=== PATIENT | male | born 1975 | race African-American/Black ===

== ENCOUNTER 2022-07-29 19:04 | Emergency (ER) | payer OTHER, BC, MEDICAID, SELFPAY ==
[2022-07-29 19:07] VITALS: BP 149/95; PULSE 73; RESP 18; TEMP 36.6; O2SAT 98; BMI 26.9
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
[2022-07-29 20:56] VITALS: BP 145/90; PULSE 70; RESP 18; TEMP 36.6; O2SAT 99
== END 2022-07-29 21:00 | disposition home or self-care (01) ==
PROVIDERS: Emergency Provider Emergency Medicine
DX: S70.02XA Contusion of left hip, initial encounter (principal); S39.012A Strain of muscle, fascia and tendon of lower back, initial encounter; V03.10XA Pedestrian on foot injured in collision with car, pick-up truck or van in traffic accident, initial encounter
CPT/HCPCS: 72128; 72131; 72170; 72192; 73502; 73552; 73560; 99285

== ENCOUNTER 2022-11-02 11:12 | Emergency (ER) | payer BC, MEDICAID, SELFPAY ==
[2022-11-02 12:21] VITALS: BP 142/80; PULSE 73; RESP 18; TEMP 37.7; O2SAT 98; BMI 27.3
--- NOTE | 2022-11-02 12:30 | EXP.UTC ---
Discharge Plan Disposition Patient Disposition: Home, Self-Care Condition: Good Prescriptions Prescriptions: New benzonatate 100 mg capsule 100 mg PO TID PRN (Reason: cough) Qty: 30 0RF No Action amlodipine 10 mg Tablet 10 mg PO DAILY lisinopril 10 mg Tablet 10 mg PO DAILY pregabalin 150 mg capsule 150 mg PO DAILY methocarbamol 750 mg tablet 750 mg PO Q8H PRN (Reason: pain) Qty: 20 0RF naproxen 500 mg tablet 500 mg PO Q8H PRN (Reason: pain) Qty: 20 0RF Referrals Follow up/Referrals: Provider,Referral, MD [Primary Care Provider] - See instructions Activity Restrictions/Add. Instructions Additional Instructions/Restrictions: *Monitor Temp, Over the counter Motrin or Tylenol as directed/as needed Tylenol every 4 hours and Motrin every 6 hours (as long as your family doctor has told you that you can take it) for fever or pain. and straight to ER if unable to lower temp less than 101.0 after medication given *Warm salt water gargles may help to soothe the throat *Throat Lozenges? *Warm fluids like tea with honey may help to soothe the throat? *Sleep elevated *Humidifier/Vaporizer Tessalone perrles may help with your Cough Your throat swab was sent for culture. Those results are typically sent to your primary care. Be sure to follow up in 2-3 days with your family doctor/primary care physician if no improvement so they can review those result and treat if necessary. If you don?t have a primary care doctor, I recommend you get one but in the mean time, you will have to return to a walk in clinic Follow up IMMEDIATELY for new or worsening symptoms or no Noticeable improvement over the next 48-72 hours. 911 for difficulty breathing or swallowing You were tested for today for COVID19 your test result should be back in the next 24-48 hours, you may check your results on the [facility] [employer] [facility] Clinical Impressions Clinical Impression: Viral syndrome Stand Alone Forms Stand Alone Forms: Work/School Release Instructions Patient Instructions: DI for Viral Syndrome, DI for Fever (Symptom) -- Adult Discharge ED Provider: Pattie Pugh [facility] HPI General Stated complaint: Covid test, Cough, bodyaches, fatigue Mode of Arrival: Ambulatory Source of Information: Patient Limitations: No Limitations Time Seen by Provider: 11/02/22 12:30 Description of Symptoms (Recalled from Triage Doc. by RN): PATIENT C/O FEVER, CHILLS, BODY ACHES AND PRODUCTIVE COUGH SINCE LAST NIGHT HEENT Symptoms (Recalled from RN notes): Yes Resp Symptoms (Recalled from RN notes): Yes Skin Symptoms (Recalled from RN notes): No MS Symptoms (Recalled from RN notes): No Functional Status (Recalled from RN notes): WNL History of Present Illness Provider Complaint: Patient states that he started feeling bad yesterday and started with a little cough and throughout the day started with fever, chills, body aches, sore throat and over all not feeling well States that today he was still feeling bad so he came in Related Data Home Medications Medication Instructions Recorded Confirmed amlodipine 10 mg tablet 10 mg PO DAILY htn 07/29/22 07/29/22 lisinopril 10 mg tablet 10 mg PO DAILY htn 07/29/22 07/29/22 pregabalin 150 mg capsule 150 mg PO DAILY Pain 07/29/22 07/29/22 Previous Rx's Medication Instructions Recorded methocarbamol 750 mg tablet 750 mg PO Q8H PRN pain #20 tabs 07/29/22 naproxen 500 mg tablet 500 mg PO Q8H PRN pain #20 tabs 07/29/22 benzonatate 100 mg capsule 100 mg PO TID PRN cough #30 caps 11/02/22 Allergies Allergy/AdvReac Type Severity Reaction Status Date / Time No Known Allergies Allergy Verified 07/29/22 20:01 Worker's Comp Is this a Worker's Comp case?: No [facility] Disclaimer: The information contained in this section may have been updated after the patient was seen, as this information can be updated by other users. Social History (Updated 07/29/22 @ 2
[2022-11-02 12:50] LABS: UTC Strep Screen (Rapid) Negative (Negative)
[2022-11-02 13:00] VITALS: BP 142/80; PULSE 73; RESP 18; TEMP 37.7; O2SAT 98
== END 2022-11-02 13:02 | disposition home or self-care (01) ==
PROVIDERS: Emergency Provider Nurse Practitioner
DX: R05.1 Acute cough (principal); B34.9 Viral infection, unspecified; R53.83 Other fatigue; Z20.822 Contact with and (suspected) exposure to COVID-19
CPT/HCPCS: 87880; 99212; 99214; C9803; G0463; U0003; U0005

== ENCOUNTER 2024-02-17 09:07 | Outpatient (CLI) | payer BC, SELFPAY ==
--- NOTE | 2024-02-17 | MR_ITS ---
FINAL REPORT TECHNIQUE: Multiplanar MR without contrast CLINICAL HISTORY: DISC DEGENERATION COMPARISON: None FINDINGS: The vertebral heights are normal. Marrow signal pattern is unremarkable. Alignment is normal. Thoracic spinal cord shows a normal MR appearance. Multilevel mild annular bulges are present in the lower thoracic spine, from the T7-8 through the T9-10 levels. There is minimal disc disease present in the upper thoracic spine. There is no canal stenosis present. IMPRESSION: Multilevel mild annular bulges are present in the lower thoracic spine from the T7-8 through T9-10 levels. Reviewed, Interpreted and Dictated by Stephanie Valencia MD Transcribed by Angelita Denson Authenticated and [facility]
== END 2024-02-17 23:59 | disposition home or self-care (01) ==
LOC: RAD 09:08
PROVIDERS: PCP Pain Medicine Interventional Pain Medicine; Visit Provider Pain Medicine Interventional Pain Medicine
DX: M51.34 Other intervertebral disc degeneration, thoracic region (principal)
CPT/HCPCS: 72146

== ENCOUNTER 2024-02-21 11:27 | Emergency (ER) | payer BC, SELFPAY ==
[2024-02-21 11:35] VITALS: BP 128/78; PULSE 60; RESP 18; TEMP 36.5; O2SAT 100; BMI 29.1
[2024-02-21 12:02] LABS: Apearance,Urine Cloudy (Clear); Bilirubin,Urine Negative (Negative); Blood, Urine Negative (Negative); Color,Urine Yellow (Yellow); Glucose,Urine (UA) Negative (Negative); Ketones,Urine Negative (Negative); PH,Urine 5.5 (5.0-8.5); Protein,Urine 1+ (Negative); Specific Gravity, Urine >= 1.030 (1.005-1.030); UTC Leukocyte Esterase,Urine Negative (Negative); UTC Nitrate,Urine Negative (Negative); Urobilinogen,Urine 0.2 EU/dl (0.2)
--- NOTE | 2024-02-21 12:11 | EXP.UTC ---
Discharge Plan Disposition Patient Disposition: Home, Self-Care Condition: Good Prescriptions Prescriptions: No Action amlodipine 10 mg Tablet 10 mg PO DAILY lisinopril 10 mg Tablet 10 mg PO DAILY pregabalin 150 mg capsule 150 mg PO DAILY oxycodone-acetaminophen [Percocet] 7.5-325 mg Tablet 1 tab PO Q4H PRN (Reason: Pain) Referrals Follow up/Referrals: Provider,Referral, MD [Primary Care Provider] - See instructions Activity Restrictions/Add. Instructions Additional Instructions/Restrictions: Your test results should be back in the next 3-5 days make sure to check your results and follow up immediately Make sure to drink plenty of fluids Return if needed Straight to ER if any life threatening symptoms Clinical Impressions Clinical Impression: Penile discharge Instructions Patient Instructions: How to Detect and Treat STDs, Facts About Sexually Transmitted Infections Print Language Print Language: [place] Discharge ED Provider: Pattie Pugh [facility] [place] General Stated complaint: discharge and odor from private area? Mode of Arrival: Ambulatory Source of Information: Patient Limitations: No Limitations Time Seen by Provider: 02/21/24 12:11 Description of Symptoms (Recalled from Triage Doc. by RN): PATIENT C/O POSSIBLE BACTERIAL INFECTION TO GENITAL AREA HEENT Symptoms (Recalled from RN notes): No Resp Symptoms (Recalled from RN notes): No Skin Symptoms (Recalled from RN notes): No MS Symptoms (Recalled from RN notes): No Functional Status (Recalled from RN notes): WNL History of Present Illness Provider Complaint: Patient state that he was seen and treated at another [facility] for bacterial infection a month or so ago States he was given medication but still has been having discharge from penis on and off worried that the medication did not clear the infection so he wanted to get tested again Related Data Home Medications ?Medication ?Instructions ?Recorded ?Confirmed amlodipine 10 mg tablet 10 mg PO DAILY htn 07/29/22 02/21/24 lisinopril 10 mg tablet 10 mg PO DAILY htn 07/29/22 02/21/24 pregabalin 150 mg capsule 150 mg PO DAILY Pain 07/29/22 02/21/24 oxycodone-acetaminophen 7.5 mg-325 1 tab PO Q4H PRN Pain 02/21/24 02/21/24 mg tablet (Percocet) Allergies Allergy/AdvReac Type Severity Reaction Status Date / Time No Known Allergies Allergy Verified 07/29/22 20:01 Worker's Comp Is this a Worker's Comp case?: No [facility] Disclaimer: The information contained in this section may have been updated after the patient was seen, as this information can be updated by other users. Medical History (Updated 02/21/24 @ 12:22 by Pattie Pugh APRN) Hypertension Social History (Updated 07/29/22 @ 21:01 by Padma Bowden DO) Smoking Status: Never smoker alcohol intake: never current occupational status: employed Travel in the last 8 weeks: None ROS Obtained: Yes All systems reviewed & no additional complaints except as documented and Yes Systems reviewed as appropriate & no additional complaints except as documented Constitutional Constitutional: Reports system reviewed and no additional complaints, except as documented and Reports as per HPI ENT Ears, Nose, Mouth, and Throat: Reports system reviewed and no additional complaints, except as documented and Reports as per HPI Cardiovascular Cardiovascular: Reports system reviewed and no additional complaints, except as documented and Reports as per HPI Respiratory Respiratory: Reports system reviewed and no additional complaints, except as documented and Reports as per HPI Gastrointestinal Gastrointestingal: Reports system reviewed and no additional complaints, except as documented and as per HPI Musculoskeletal Musculoskeletal: Reports system reviewed and no additional complaints, except as documented and Reports as per HPI Physical Exam General General appearance: alert and in no apparent distress ENT ENT exam: Present mucous membranes moist Respiratory Respiratory exam: Present normal lung sounds bilaterally; Absent respiratory distress or wheezes Cardiovascular Cardiovascular exam: Present regular rate, normal rhythm and normal heart sounds Abdominal Exam Abdominal exam: Present soft and normal bowel sounds; Absent distention or tenderness Neurological Exam Neurological exam: Present alert, oriented X3 and normal gait Medical Decision Making Mundo Inquiry Pt receiving controlled substance: No Mundo was queried for this patient: No Vital Signs: 02/21/24 11:35 Temperature 97.7 F Temperature Source Oral Pulse Rate [Left Brachial] 60 Respiratory Rate 18 Blood Pressure [Left Arm] 128/78 Blood Pressure Mean [Left Arm] 94 Blood Pressure Source [Left Arm] Automatic Cuff Blood Pressure Position [Left Arm] Sitting 02 Sat by Pulse Oximetry 100 Oxygen Delivery Method Room Air Lab Data Lab Results 02/21/24 12:00: Urine Color Yellow, Urine Appearance Cloudy, Urine pH 5.5, Ur Specific Mize >= 1.030, Urine Protein 1+, Urine Glucose (UA) Negative, Urine Ketones Negative, Urine Blood Negative, Urine Nitrate Negative, Urine Bilirubin Negative, Urine Urobilinogen 0.2, Ur Leukocyte Esterase Negative Orders (Tests/Meds): ORDERS Category Date Time Status Mycoplasma genitalium, ROSA, Ur Stat Lab 02/21/24 11:57 Ordered Medical Decision Narrative: Patient states that he underwent testing at another [facility] and was dx with a bacterial infection patient was positive for Mycoplasma Genitalium and was treated but has continued to have discharge with odor on and off and significant other was treated also but concerned that they may still have it so they came in to get checked
[2024-02-21 12:16] VITALS: BP 128/78; PULSE 60; RESP 18; TEMP 36.5; O2SAT 100
[2024-02-23 06:13] LABS: Neisseria gonorrhoeae, NAA Negative (Negative)
== END 2024-02-21 12:32 | disposition home or self-care (01) ==
PROVIDERS: Emergency Provider Nurse Practitioner
DX: R36.9 Urethral discharge, unspecified (principal)
CPT/HCPCS: 81003; 87491; 87591; 99212; 99213; G0463

== ENCOUNTER 2024-03-04 19:00 | Emergency (ER) | payer BC, SELFPAY ==
[2024-03-04 19:20] VITALS: BP 126/84; PULSE 64; RESP 20; TEMP 36.3; O2SAT 100; BMI 28.3
[2024-03-04 20:05] VITALS: BP 126/84; PULSE 64; RESP 20; TEMP 36.3; O2SAT 100
--- NOTE | 2024-03-04 20:09 | EXP.UTC ---
Discharge Plan Disposition Patient Disposition: Home, Self-Care Condition: Good Prescriptions Prescriptions: No Action amlodipine 10 mg Tablet 10 mg PO DAILY lisinopril 10 mg Tablet 10 mg PO DAILY pregabalin 150 mg capsule 150 mg PO DAILY oxycodone-acetaminophen [Percocet] 7.5-325 mg Tablet 1 tab PO Q4H PRN (Reason: Pain) Referrals Follow up/Referrals: Provider,Referral, MD [Primary Care Provider] - See instructions Activity Restrictions/Add. Instructions Additional Instructions/Restrictions: No sign of a bacterial infection. Likely viral. Viruses can take 7-14 days to run their course. Nasal saline and bulb syringe or nose Anika to remove nasal drainage to help with nasal congestion. Hard to eat, drink, sleep with nasal congestion so important to keep this cleaned out. Monitor temp. Tylenol or Motrin as needed for pain or fever Encourage fluids, water, Gatorade, Powerade, Pedialyte if infant/toddler/child Warm salt water gargles Warm fluids Sore throat lozenges Sleep elevated Humidifier/vaporizer Follow-up immediately for new or worsening symptoms or no noticeable improvement over the next 48-72 hours. Clinical Impressions Clinical Impression: Close exposure to COVID-19 virus, Upper respiratory infection Instructions Patient Instructions: DI for COVID-19 (Suspected or Confirmed ), DI for Viral Upper Respiratory Infection -- Adult Print Language Print Language: Czech Discharge ED Provider: [place] ([facility] [place] General Stated complaint: covid exp- sore throat Mode of Arrival: Ambulatory Source of Information: Patient Limitations: No Limitations Time Seen by Provider: 03/04/24 20:09 Description of Symptoms (Recalled from Triage Doc. by RN): PATIENT C/O SORE THROAT, EXPOSURE TO STREP HEENT Symptoms (Recalled from RN notes): Yes Resp Symptoms (Recalled from RN notes): No Skin Symptoms (Recalled from RN notes): No MS Symptoms (Recalled from RN notes): No Functional Status (Recalled from RN notes): WNL History of Present Illness Provider Complaint: 48 yr old male presents for sore throat- exposed to covid Related Data Home Medications ?Medication ?Instructions ?Recorded ?Confirmed amlodipine 10 mg tablet 10 mg PO DAILY htn 07/29/22 03/04/24 lisinopril 10 mg tablet 10 mg PO DAILY htn 07/29/22 03/04/24 pregabalin 150 mg capsule 150 mg PO DAILY Pain 07/29/22 03/04/24 oxycodone-acetaminophen 7.5 mg-325 1 tab PO Q4H PRN Pain 02/21/24 03/04/24 mg tablet (Percocet) Allergies Allergy/AdvReac Type Severity Reaction Status Date / Time No Known Allergies Allergy Verified 07/29/22 20:01 Worker's Comp Is this a Worker's Comp case?: No [facility] Disclaimer: The information contained in this section may have been updated after the patient was seen, as this information can be updated by other users. Medical History , DISPATCH LEAD) Hypertension Social History , DISPATCH LEAD) Smoking Status: Never smoker alcohol intake: never current occupational status: employed Travel in the last 8 weeks: None ROS Obtained: Yes All systems reviewed & no additional complaints except as documented Constitutional Constitutional: Reports system reviewed and no additional complaints, except as documented Eyes Eyes: Reports system reviewed and no additional complaints, except as documented ENT Ears, Nose, Mouth, and Throat: Reports system reviewed and no additional complaints, except as documented, Reports as per HPI and Reports sore throat Cardiovascular Cardiovascular: Reports system reviewed and no additional complaints, except as documented Gastrointestinal Gastrointestingal: Reports system reviewed and no additional complaints, except as documented Integumentary/Breasts Skin/Breast: Reports system reviewed and no additional complaints, except as documented Neurologic Neurologic: Reports system reviewed and no additional complaints, except as documented Endocrine Endocrine: Reports system reviewed and no additional complaints, except as documented Hematologic/Lymphatic Henatologic/Lymphatic: Reports system reviewed and no additional complaints, except as documented Physical Exam General General appearance: alert and in no apparent distress Eye Eye exam: Present normal appearance and PERRL ENT ENT exam: Present mucous membranes moist and TM's normal bilaterally Expanded ENT Exam Throat exam: Present tonsillar erythema and tonsillomegaly Respiratory Respiratory exam: Present normal lung sounds bilaterally Cardiovascular Cardiovascular exam: Present regular rate Neurological Exam Neurological exam: Present alert and oriented X3 Skin Skin exam: Present warm and intact Medical Decision Making Medical Records Medical records reviewed: Yes I reviewed the patient's medical records. Mundo Inquiry Pt receiving controlled substance: No Mundo was queried for this patient: No Vital Signs: 03/04/24 19:20 03/04/24 20:05 Temperature 97.3 F L 97.3 F L Temperature Source Temporal Artery Scan Pulse Rate 64 Pulse Rate [Left Brachial] 64 Respiratory Rate 20 20 Blood Pressure 126/84 Blood Pressure [Left Arm] 126/84 Blood Pressure Mean [Left Arm] 98 Blood Pressure Source [Left Arm] Automatic Cuff Blood Pressure Position [Left Arm] Sitting 02 Sat by Pulse Oximetry 100 Oxygen Delivery Method Room Air Orders (Tests/Meds): ORDERS Category Date Time Status Covid-19 Nasal PCR ([facility]) Routine Lab 03/04/24 19:20 Received
[2024-03-04 20:10] LABS: UTC Strep Screen (Rapid) Negative (Negative)
== END 2024-03-04 20:18 | disposition home or self-care (01) ==
PROVIDERS: Emergency Provider Nurse Practitioner Family
DX: R07.0 Pain in throat (principal); J06.9 Acute upper respiratory infection, unspecified; Z20.822 Contact with and (suspected) exposure to COVID-19
CPT/HCPCS: 87635; 87880; 99212; 99213; 99214; G0463